=== PATIENT | female | born 1975 | race African-American/Black ===

== ENCOUNTER 2018-08-28 07:35 | Outpatient (CLI) | payer BC ==
--- NOTE | 2018-08-28 09:39 | CT ---
ABDOMEN AND PELVIS CT NONCONTRAST: CLINICAL HISTORY: Renal colic, abdominal pain. FINDINGS: There is no urolithiasis or obstructive uropathy. Evidence of prior cholecystitis. Solid abdominal organs, bowel, lymph nodes, and vasculature are limited in assessment by noncontrast technique. No a scites or free air. Visualized lung bases are clear. There is no acute osseous pathology visualized . There is a focal rounded density of the left pelvic cavity, likely adnexal in origin, although inc ompletely evaluated. IMPRESSION: 1. No urolithiasis or obstructive uropathy. 2. Left adnexal mass. Recommend dedicated pelvic ultrasound to further evaluate. CODE T POS: CASIE
== END 2018-08-28 07:36 | disposition home or self-care (01) ==
LOC: BICCT 07:35
PROVIDERS: ATTEND Internal Medicine Rheumatology
DX: N23 Unspecified renal colic (principal); N85.8 Other specified noninflammatory disorders of uterus
CPT/HCPCS: 74176

== ENCOUNTER 2023-07-02 10:02 | Outpatient (CLI) | payer BC ==
[2023-07-02] MEDS ORDERED: Iopamidol 370 76% 100 ML VIAL ONE (10:54)
== END 2023-07-02 10:03 | disposition home or self-care (01) ==
LOC: CT 10:02
PROVIDERS: ATTEND Urology
DX: N28.89 Other specified disorders of kidney and ureter (principal); N20.0 Calculus of kidney
CPT/HCPCS: 74170

== ENCOUNTER 2023-11-02 07:36 | Outpatient (CLI) | payer BC | END 2023-11-02 07:37 | disposition home or self-care (01) | LOC: ULT 07:36 | PROVIDERS: ATTEND Internal Medicine | DX: R22.1 Localized swelling, mass and lump, neck (principal) | CPT/HCPCS: 76536 ==